=== PATIENT | female | born 1955 | race Hispanic/Latino ===

== ENCOUNTER 2017-09-02 01:43 | Emergency (ER) | payer OTHER ==
[2017-09-02] MEDS ORDERED: HYDROcodone/Acetaminophen 7.5/325 mg Tablet ONE (02:23)
[2017-09-02 02:38] LABS: #Basophils 0.1 thou/uL (0.0-0.2); #Eosinphils 0.2 thou/uL (0.0-0.7); #Lymphocytes 2.7 thou/uL (1.20-3.40); #Monocytes 0.4 thou/uL (0.11-0.59); #Neutrophils 2.8 thou/uL (1.40-6.50); %Eosinophils 2.7 % (0.0-10.0); %Lymphocytes 43.9 % (21.0-51.0); %Monocytes 6.7 % (0.0-10.0); ALT (SGPT) 16 U/L (8-55); AST (SGOT) 13 U/L (5-34); Alkaline Phosphatase 152 U/L (40-150); Anion Gap 18 mmol/L (10-20); BUN (Urea Nitrogen) 18 mg/dL (9.8-20.1); Bilirubin, Total 0.2 mg/dL (0.2-1.2); CK (CPK) 51 U/L (29-168); Calc. Creatinine Clearance 0 mL/min (70-130); Calcium 9.4 mg/dL (7.8-10.44); Carbon Dioxide 22 mmol/L (22-29); Chloride 95 mmol/L (98-107); Estimated GFR-MDRD 53; Globulin 3.4 g/dL (2.4-3.5); Hematocrit 42.8 % (36.0-47.0); Mean Platelet Volume 9.9 fL (7.4-10.4); Microcytosis SLIGHT = 6-15 cells (100X) (0-5/hpf); Protein, Total 7.4 g/dL (6.0-8.3); Red Blood Cell (RBC) Count 5.54 mill/uL (4.20-5.40); White Blood Cell (WBC) Count 6.2 thou/uL (4.8-10.8)
[2017-09-02] MEDS ORDERED: Insulin Regular 300 UNITS/3 ML VIAL ONE (02:42)
== END 2017-09-02 03:58 | disposition home or self-care (01) ==
LOC: SCSER 01:43
DX: M25.571 Pain in right ankle and joints of right foot (principal); E11.65 Type 2 diabetes mellitus with hyperglycemia; M32.9 Systemic lupus erythematosus, unspecified; E11.9 Type 2 diabetes mellitus without complications; I25.10 Atherosclerotic heart disease of native coronary artery without angina pectoris; E78.5 Hyperlipidemia, unspecified; I10 Essential (primary) hypertension; E66.9 Obesity, unspecified; F41.9 Anxiety disorder, unspecified; F31.9 Bipolar disorder, unspecified; Z79.84 Long term (current) use of oral hypoglycemic drugs; Z79.82 Long term (current) use of aspirin; Z79.899 Other long term (current) drug therapy
CPT/HCPCS: 36416; 80053; 82550; 85025; 85379; 96361; 96374; J1815

== ENCOUNTER 2018-09-09 10:50 | Outpatient (CLI) | payer OTHER, MEDICARE ==
--- NOTE | 2018-09-09 12:17 | RAD ---
PELVIS 1 VIEW: Date: 09/09/18 HISTORY: Fall. Right hip pain. COMPARISON: None. FINDINGS: SI joints are normal, as well as the pubic symphysis. The femoral necks are intact. No acute fracture or malalignment. IMPRESSION: No acute fracture or malalignment. POS: OFF
--- NOTE | 2018-09-09 12:18 | RAD ---
RIGHT HIP 2 VIEWS: Date: 09/09/18 HISTORY: Fall. Pain. COMPARISON: None. FINDINGS: Right obturator ring is intact. No acute fracture or malalignment. IMPRESSION: No acute fracture or malalignment. POS: OFF
--- NOTE | 2018-09-09 13:29 | RAD ---
LEFT HIP TWO VIEWS: History: Pain. Fall. Comparison: None. FINDINGS: Left femoral neck is in place. Obturator ring is intact. Old adductor injury on the left. Mild narrowing left SI joint. IMPRESSION: No acute fracture. Mild degenerative changes. POS: OFF
== END 2018-09-09 10:51 | disposition home or self-care (01) ==
LOC: BICRAD 10:50
PROVIDERS: ATTEND Internal Medicine Rheumatology
DX: M25.551 Pain in right hip (principal); M16.12 Unilateral primary osteoarthritis, left hip
CPT/HCPCS: 72170

== ENCOUNTER 2018-09-16 13:56 | Outpatient (CLI) | payer OTHER, MEDICARE | END 2018-09-16 13:57 | disposition home or self-care (01) | LOC: BICMAMMO 13:56 | PROVIDERS: ATTEND Obstetrics & Gynecology | DX: Z12.31 Encounter for screening mammogram for malignant neoplasm of breast (principal); Z80.3 Family history of malignant neoplasm of breast | CPT/HCPCS: 77063; 77067 ==

== ENCOUNTER 2018-10-22 13:20 | Outpatient (CLI) | payer OTHER, MEDICARE ==
--- NOTE | 2018-10-22 14:57 | ULT ---
SOFT TISSUE ULTRASOUND OF THE RIGHT HIP AND OF THE RIGHT LOWER EXTREMITY: INDICATIONS: Palpable abnormality, mass. FINDINGS: Localized sonographic imaging of the site of palpable concern of the right lower extremity/junction w ith right hemipelvis, adjacent the right hip, does not reveal a discrete lesion. There is echogenici ty, indicative of subcutaneous fat. IMPRESSION: Subcutaneous fat echogenicity is seen at the site of concern. The possibility of an indwelling lipom a is not excluded. Recommend followup with MRI with and without contrast to further evaluate. POS: [facility]
== END 2018-10-22 13:21 | disposition home or self-care (01) ==
LOC: SCSULT 13:20
PROVIDERS: ATTEND Nurse Practitioner Adult Health
DX: R59.0 Localized enlarged lymph nodes (principal)
CPT/HCPCS: 76705

== ENCOUNTER 2018-11-11 10:02 | Outpatient (CLI) | payer OTHER, MEDICARE ==
[2018-11-11 11:18] LABS: Estimated GFR-MDRD - POC Greater than 90
--- NOTE | 2018-11-11 13:40 | MRI ---
MRI RIGHT HIP WITH AND WITHOUT CONTRAST: HISTORY: R59.0, lymphadenopathy. COMPARISON: Ultrasound from 10/22/2018. FINDINGS: BONES: No fracture. No malalignment. No stress edema. On the T1 weighted imaging sequence, there are no abnormal areas of bone marrow signal replacement. There is chondral loss of the femoral head and acetabular articular surfaces with some reactive marrow edema. SOFT TISSUES: There is no soft tissue mass. The intrapelvic soft tissues are unremarkable. TENDONS: Low grade tendinosis of the gluteus medius tendon. Low grade greater trochanteric bursitis . The iliopsoas tendon is intact. Mild tendinosis of the common hamstring tendon and the semimembra nosus. IMPRESSION: 1. No soft tissue mass of the thigh. 2. Mild to moderate degenerative changes of the right hip with advanced cartilage loss of the latera l femoral head and acetabulum, as well as subcortical reactive marrow changes. 3. Mild gluteus medius tendinosis and greater trochanteric bursitis. 4. No acute fracture, malalignment, or stress edema. 5. No adenopathy. POS: [facility]
== END 2018-11-11 10:03 | disposition home or self-care (01) ==
LOC: SCSMRI 10:02
PROVIDERS: ATTEND Nurse Practitioner Adult Health
DX: R59.0 Localized enlarged lymph nodes (principal); M16.11 Unilateral primary osteoarthritis, right hip; M76.01 Gluteal tendinitis, right hip; M70.61 Trochanteric bursitis, right hip
CPT/HCPCS: 82565

== ENCOUNTER 2019-01-20 07:55 | Outpatient (CLI) | payer OTHER, MEDICARE ==
--- NOTE | 2019-01-20 10:21 | MRI ---
MRI OF CERVICAL SPINE WITHOUT CONTRAST: DATE: 01/20/2019. COMPARISON: None. HISTORY: Chronic neck pain radiating down the left shoulder and arm, cervical radiculopathy. TECHNIQUE: Multiplanar, multisequence MR imaging of the cervical spine provided without contrast media. FINDINGS: The sagittal STIR imaging is limited on the basis of motion artifact and demonstrates no focal area o f osseous marrow edema. Incompletely assessed mucosal thickening of the sphenoid sinuses noted. There is mild degenerative change present at the atlantoaxial interspace. C2-3: Mild disk space narrowing. Detailed assessment limited on the basis of motion. Mild bilatera l facet hypertrophy, left greater than right. No significant central canal or neural foraminal steno sis. C3-4: No significant central canal stenosis. Detailed assessment limited on the basis of motion art ifact. Mild bilateral facet hypertrophy, left greater than right. No significant neural foraminal s tenosis on either side. C4-5: Mild disk bulge with partial effacement of ventral thecal sac. No significant central canal s tenosis. No significant neural foraminal stenosis. Mild bilateral facet hypertrophy. C5-6: Mild disk space narrowing and mild disk bulge with partial effacement of the ventral thecal sa c. No significant central canal stenosis. No significant neural foraminal stenosis on either side. C6-7: Mild disk space narrowing and mild disk bulge. Partial effacement of ventral thecal sac with no significant central canal or neural foraminal stenosis. C7-T1: No central canal or neural foraminal stenosis. There is no focal area of abnormal signal intensity identified within the cervical cord. IMPRESSION: Motion limited examination demonstrating multilevel mild degenerative change. There is no evidence f or high-grade/severe central canal or neural foraminal stenosis within the cervical spine. POS: [facility]
== END 2019-01-20 07:56 | disposition home or self-care (01) ==
LOC: SCSMRI 07:55
PROVIDERS: ATTEND Anesthesiology Pain Medicine
DX: M47.22 Other spondylosis with radiculopathy, cervical region (principal)
CPT/HCPCS: 72141

== ENCOUNTER 2019-04-05 07:24 | Outpatient (CLI) | payer OTHER, MEDICARE ==
--- NOTE | 2019-04-05 08:54 | RAD ---
LEFT SHOULDER 3 VIEWS: HISTORY: Chronic left shoulder pain FINDINGS: There are degenerative changes in the acromioclavicular joint. No acute fracture, dislocation or bony destruction is identified
--- NOTE | 2019-04-05 11:03 | MRI ---
EXAM: LEFT SHOULDER MRI WITHOUT IV CONTRAST: History: Chronic left shoulder pain. Technique: Multiplanar, multisequence MRI examination of the left shoulder is performed. FINDINGS: AC joint arthrosis changes are noted with subchondral cystic changes with some downsloping of the ant erior and lateral acromion with minimal fat stranding in the subacromial bursa. There is abnormal sig nal involving the intraarticular portion of the biceps tendon and biceps anchor and superior labrum, evidence for biceps tendon interstitial tear and tear of the biceps anchor and involving the superior labrum as well. Minimal supraspinatus tendinopathy. The infraspinatus tendon appears intact. Subscap ularis tendonopathy as well as undersurface partial thickness interstitial tear. Rotator cuff muscles appear to be within normal limits of signal and volume. No acute osteochondral defect. No significan t abnormal marrow signal. IMPRESSION: Abnormal signal associated with the intraarticular portion of the biceps tendon, biceps anchor and denson perior labrum, evidence for tears. Undersurface and interstitial tear of the subscapularis tendon. AC joint arthrosis with downsloping of the anterior and lateral acromion. Other findings as above. POS: [facility]
== END 2019-04-05 07:25 | disposition home or self-care (01) ==
LOC: SCSMRI 07:24
PROVIDERS: ATTEND Internal Medicine Rheumatology
DX: M25.512 Pain in left shoulder (principal); G89.29 Other chronic pain; S46.212A Strain of muscle, fascia and tendon of other parts of biceps, left arm, initial encounter; S46.912A Strain of unspecified muscle, fascia and tendon at shoulder and upper arm level, left arm, initial encounter; M19.012 Primary osteoarthritis, left shoulder; M75.92 Shoulder lesion, unspecified, left shoulder

== ENCOUNTER 2020-09-17 12:47 | Outpatient (CLI) | payer OTHER, MEDICARE ==
--- NOTE | 2020-09-17 13:25 | MMO ---
Bilateral MAMMO Bilat Screen [facility]. CLINICAL HISTORY: Patient is 64 years old and is seen for screening. The patient has no family history of breast cancer. The patient has no personal history of cancer. VIEWS: The views performed were: bilateral craniocaudal with tomosynthesis and bilateral mediolateral oblique with tomosynthesis. FILMS COMPARED: The present examination has been compared to prior imaging studies performed at [facility] on 08/26/2017 and 09/16/2018, and at [facility] on 05/01/2014 and 06/25/2015. This study has been interpreted with the assistance of computer-aided detection. MAMMOGRAM FINDINGS: There are scattered fibroglandular densities. There are no suspicious masses, suspicious calcifications, or new areas of architectural distortion. IMPRESSION: THERE IS NO MAMMOGRAPHIC EVIDENCE OF MALIGNANCY. A ROUTINE FOLLOW-UP MAMMOGRAM IN 1 YEAR IS RECOMMENDED. THE RESULTS OF THIS EXAM WERE SENT TO THE PATIENT. ACR BI-RADS Category 1 - Negative MAMMOGRAPHY NOTE: 1. A negative mammogram report should not delay a biopsy if a dominant of clinically suspicious mass is present. 2. Approximately 10% to 15% of breast cancers are not detected by mammography. 3. Adenosis and dense breasts may obscure an underlying neoplasm. Reported by: ROSAURA REBOLLEDO MD Electonically Signed: [id number]
== END 2020-09-17 12:48 | disposition home or self-care (01) ==
LOC: BICMAMMO 12:47
PROVIDERS: ATTEND Obstetrics & Gynecology
DX: Z12.31 Encounter for screening mammogram for malignant neoplasm of breast (principal)
CPT/HCPCS: 77063; 77067

== ENCOUNTER 2020-09-22 18:47 | Observation (INO) | payer OTHER, MEDICARE ==
[~2020-09-22 18:47] MED LIST: Iopamidol-370 76% 500 ML 1 ML ONE
[2020-09-22 20:33] LABS: #Basophils 0.1 thou/uL (0.0-0.2); #Eosinphils 0.2 thou/uL (0.0-0.7); #Lymphocytes 2.9 thou/uL (1.20-3.40); #Monocytes 0.6 thou/uL (0.11-0.59); #Neutrophils 4.4 thou/uL (1.40-6.50); %Basophils 1.1 % (0.0-1.0); %Eosinophils 2.5 % (0.0-10.0); %Lymphocytes 35.3 % (21.0-51.0); %Monocytes 7.5 % (0.0-10.0); %Neutrophils 53.6 % (42.0-75.0); Hemoglobin 11.6 g/dL (12.0-16.0); Mean Corpuscular HGB CONC 33.1 g/dL (32.0-36.0); Mean Corpuscular Hemoglobin 25.7 pg (27.0-31.0); Mean Corpuscular Volume 77.8 fL (78.0-98.0); Mean Platelet Volume 8.2 fL (7.4-10.4); Platelet Count 242 thou/uL (130-400); RBC Distribution Width 13.9 % (11.5-14.5); Red Blood Cell (RBC) Count 4.52 mill/uL (4.20-5.40); White Blood Cell (WBC) Count 8.3 thou/uL (4.8-10.8)
[2020-09-22 20:39] LABS: PTT 31.2 sec (22.9-36.1); Prothrombin Time 13.1 sec (12.0-14.7)
[2020-09-22 20:54] LABS: ALT (SGPT) 15 U/L (8-55); AST (SGOT) 11 U/L (5-34); Albumin 3.8 g/dL (3.4-4.8); Alkaline Phosphatase 116 U/L (40-110); Anion Gap 14 mmol/L (10-20); BUN (Urea Nitrogen) 20 mg/dL (9.8-20.1); Bilirubin, Total 0.3 mg/dL (0.2-1.2); Calc. Creatinine Clearance 0 mL/min (70-130); Calcium 9.3 mg/dL (7.8-10.44); Carbon Dioxide 24 mmol/L (23-31); Chloride 103 mmol/L (98-107); Estimated GFR-MDRD 65; Globulin 3.1 g/dL (2.4-3.5); Glucose 227 mg/dL (80-115); Potassium 3.6 mmol/L (3.5-5.1); Protein, Total 6.9 g/dL (6.0-8.3); Sodium 137 mmol/L (136-145)
--- NOTE | 2020-09-22 21:29 | CT ---
CT BRAIN WITHOUT CONTRAST CTA HEAD WITH AND WITHOUT IV CONTRAST CTA NECK WITH AND WITHOUT IV CONTRAST 09/22/20 HISTORY: Acute onset left lower extremity numbness. FINDINGS: No evidence of acute infarct, hemorrhage, midline shift or abnormal extra-axial fluid collections see n. The ventricular size is appropriate and the basilar cisterns patent. There is a calcified hemangi francoise in the left anterior frontal region. The bony calvarium is intact. There is mucosal disease in th e paranasal sinuses. There is calcified plaque in the vertebrobasilar and carotid artery systems. There is good flow in t he cisterns without evidence of high grade stenosis, major branch occlusion or aneurysm formation. There are degenerative changes in the cervical spine. There are small low dense lesions in the thyroi d gland. IMPRESSION: No CT evidence of acute intracranial process. POS: OFF
--- NOTE | 2020-09-22 22:07 | PDOC.FPRHP ---
- History of Present Illness Chief Complaint: LLE numbness History of Present Illness: Patient is a 64-year-old female with a history of diabetes, coronary artery disease status post stenting, hyperlipidemia, hypertension presents the ED for evaluation of acute onset left lower extremity numbness [facility] Patient describes an absence of sensation in her left lower extremity from then knee down that has been improving since onset around 1330. Patient states that she does have a history of lumbar radiculopathy with paresthesias in her right lower extremity but says that her numbness feels different than typical it is on the contralateral side. Denies any headache in association. Denies any weakness, confusion, dysarthria, vision changes, light- headeded. ED Course: given 325 aspirin - Allergies/Adverse Reactions Allergies Allergy/AdvReac Type Severity Reaction Status Date / Time acetaminophen Allergy Intermediate Anxiety Verified 09/23/20 00:05 [From Tylenol-Codeine #3] codeine Allergy Intermediate Anxiety Verified 09/23/20 00:05 [From Tylenol-Codeine #3] diphenhydramine Allergy Intermediate "makes me Verified 09/23/20 00:07 anxious" doxycycline Allergy Intermediate "real bad Verified 09/23/20 00:07 acid reflux" lisinopril Allergy Intermediate "severe Verified 09/23/20 00:05 cough" metoclopramide HCl Allergy Intermediate "makes me Verified 09/23/20 00:05 [From Reglan] crazy" prochlorperazine Allergy Intermediate "severe Verified 09/23/20 00:07 [From Compazine] anxiety" prochlorperazine edisylate Allergy Intermediate "severe Verified 09/23/20 00:07 [From Compazine] anxiety" prochlorperazine maleate Allergy Intermediate "severe Verified 09/23/20 00:07 [From Compazine] anxiety" promethazine HCl Allergy Intermediate "overly Verified 09/23/20 00:07 [From Phenergan] anxious" - Home Medications Medication Instructions Recorded Confirmed Type metFORMIN HCl 1,000 mg PO BID- 11/13/13 09/23/20 History Cholecalciferol (Vitamin D3) 5,000 unit PO DAILY 11/26/15 09/22/20 History [Vitamin D3] Cinnamon Bark/Chromium Picolin 1 cap PO DAILY 11/26/15 09/23/20 History [Cinnamon Plus Chromium Capsule] Clopidogrel Bisulfate [Clopidogrel] 75 mg PO DAILY 11/26/15 09/23/20 History Escitalopram Oxalate [Lexapro] 40 mg PO DAILY 11/26/15 09/22/20 History Hydroxychloroquine Sulfate 200 mg PO BID 11/26/15 09/22/20 History [Plaquenil] Pantoprazole [Protonix] 80 mg PO DAILY 11/26/15 09/23/20 History Aspirin [Ecotrin Low Strength] 81 mg PO DAILY 07/12/20 09/23/20 History Calcium Carb/Vitamin D3/Vit K1 1 tablet PO DAILY 07/13/20 09/23/20 History [Calcium + D Soft Chewable Tablet] Carvedilol [Coreg] 3.125 mg PO DAILY #60 tablet 07/14/20 Rx Isosorbide Mononitrate [Isosorbide 30 mg PO DAILY #30 tab.er.24h 07/14/20 09/23/20 Rx Mononitrate ER] Nitroglycerin [Nitrostat] 0.4 mg SL Q5MIN PRN #30 tab 07/14/20 09/23/20 Rx Ranolazine [Ranexa] 500 mg PO BID #60 tab 07/14/20 09/23/20 Rx Simvastatin 40 mg PO HS #30 tablet 07/14/20 09/23/20 Rx Insulin Degludec [Tresiba 52 units SQ BID 09/22/20 09/22/20 History Flextouch U-200] Atorvastatin Calcium 1 tab PO HS 09/23/20 09/23/20 History - History PMHx: HTN, HLD, DM2, CAD w/hx of stents PSHx: Bilateral cateract, right lasik eye surgery, right shoulder LN removed, hysterectomy, cardiac stents FHx: DM Social: no smoking, alcohol or drugs - Review of Systems General: denies: fever/chills, weight/appetite/sleep changes Eyes: denies: eye pain, vision changes ENT: denies: nasal congestion, rhinorrhea Respiratory: denies: cough, congestion, shortness of breath Cardiovascular: reports: other (Reports acid reflux 2 days in the past 2 weeks, resolved with tums) Gastrointestinal: denies: nausea, vomiting, diarrhea, constipation, abdominal pain Genitourinary: denies: incontinence, dysuria Skin: denies: rashes, lesions Musculoskeletal: denies: pain, tenderness Neurological: reports: numbness. denies: syncope, seizure, weakness Psychological: reports: anxiety (Patient reports she is severely depressed.), depression - Vital signs BP: 144/55, Pulse: 74, Resp: 19, Pain: 5, O2 sat: 98 on (Room Air), Wt: 68kg - Physical Exam Constitutional: NAD, awake, alert and oriented, well developed HEENT: normocephalic and atraumatic, PERRLA, EOMI, grossly normal vision, MMM Neck: supple, FROM, trachea midline Chest: no-tender to palpation Heart: RRR, no murmurs/rubs/gallops, pulses present, no edema Lungs: CTAB, no respiratory distress, good air movement Abdomen: soft, non-tender, bowel sounds present Musculoskeletal: normal structure, ROM grossly normal Neurological: no focal deficit, CN II-XII intact, DTRs 2+, other (decreased sensation LLE below the knee compared to the RLE, intact at and above the knee) Skin: no rash/lesions, good turgor, capillary refill <2 seconds Heme/Lymphatic: no unusual bruising or bleeding, no purpura Psychiatric: normal mood and affect, good judgment and insight, intact recent and remote memory FMR H&P: Results - Labs Result Diagrams: 09/22/20 20:25 09/22/20 20:25 Lab results: WBC 8.3 thou/uL (4.8-10.8) 09/22/20 20:25 Hgb 11.6 g/dL (12.0-16.0) L 09/22/20 20:25 Hct 35.1 % (36.0-47.0) L 09/22/20 20:25 MCV 77.8 fL (78.0-98.0) L 09/22/20 20:25 Plt Count 242 thou/uL (130-400) 09/22/20 20: Neutrophils % 53.6 % (42.0-75.0) 09/22/20 20:25 Sodium 137 mmol/L (136-145) 09/22/20 20:25 Potassium 3.6 mmol/L (3.5-5.1) 09/22/20 20:25 Chloride 103 mmol/L (98-107) 09/22/20 20:25 Carbon Dioxide 24 mmol/L (23-31) 09/22/20 20:25 BUN 20 mg/dL (9.8-20.1) 09/22/20 20:25 Creatinine 0.88 mg/dL (0.6-1.1) 09/22/20 20:25 Glucose 227 mg/dL (80-115) H 09/22/20 20:25 Calcium 9.3 mg/dL (7.8-10.44) 09/22/20 20:25 Total Bilirubin 0.3 mg/dL (0.2-1.2) 09/22/20 20:25 AST 11 U/L (5-34) 09/22/20 20:25 ALT 15 U/L (8-55) 09/22/20 20:25 Alkaline Phosphatase 116 U/L (40-110) H 09/22/20 20:25 Serum Total Protein 6.9 g/dL (6.0-8.3) 09/22/20 20:25 Albumin 3.8 g/dL (3.4-4.8) 09/22/20 20:25 - EKG Interpretation EKG: normal sinus rhythm with a rate of 73, LA 122, cures duration of 70, QTC of 398, cures active 18 with flattened T waves in the anterior septal leads, ST segments normal axis is normal conduction is normal. Nonspecific EKG - Radiology Interpretation CT scan - head Status: report reviewed by me (No acute findings) FMR H&P: A/P - Plan LLE Numbness 2/2 CVA vs. Lumbar radiculopathy Several RFs for stroke CT Brain negative Hx Lumbar radiculopathy with parasthesias/numbness to RLE - admit stroke unit, monitor on tele - MRI Brain r/o stroke - permissive HTN - consider imaging lumbar spine if MRI neg HTN - continue home medications HLD - continue home medications, will likely increase statin to high-intensity DM2 - continue home medications - moderate SS - Hypoglycemia protocol CAD w/hx of stents - continue home medications Hx Depression/Anxiety and Bipolar Disorder - continue home medications - reportedly resuming counseling on monday 09/24 Dispo: admit stroke unit on tele PCP: Gladis Code Status: Full FMR H&P: Upper Level - Plan Date/Time: 09/22/202206 IZain DO, have evaluated this patient and agree with findings/plan as outlined by epidemiology intern resident. Pertinent changes/additions are listed here. This is a 64 yo female with a pmh of HTN, HLD, DM2, CAD w/hx of stents who presents to the ER with a cc of abrupt loss of sensation in her left lower extremity below the knee. She states this occurred at 1330 today and has had some improvement since then. She describes her condition as numbness on her entire left lower extremity initially with some resolution above her knee at this point. She states it is a feeling as if she sat on he leg for too long. She reports a history of lumbago with radiculopathy on the right but never any left sided issues. She denies any cauda equina symptoms, dizziness, lightheadedness, or chest pain. She does report a headache which is difficult to tell if this is new or chronic based on her description. She states she had a normal MRI of her brain about a month ago under the care of Dr. Eagle. She also reports that a recent MRI of her lumbar spine shows bone spurs that may be impinging on nerve roots and she plans on having surgery in October by Dr. Garcia. Her vital signs were grossly normal in the ER, mild HTN. Pt appeared in NAD, head was AT/NC, Cardio/pulm RRR/CTAB, Neuro CNII-XII grossly intact, strength 5/5 globally, moderately decreased sensation on the left lower extremity below the knee and mild decreased sensation above the knee and on the plantar surface of her foot. I was unable to elicit DTR on bilateral lower extremities. A/P Pt certainly has multiple risk factors for a CVA. Lumbar pathology would also be a consideration for this pt. Plan to admit to stroke, monitor on tele, obtain risk stratifying labs, permissive HTN, and obtain an MRI of brain in the morning. If this work up is negative, I would consider CT/MRI of lumbar region. Please see epidemiology intern note for management of chronic diseases and further information. Code: Full Prophylaxis: SCDs Family: None at bedside Diet: HH, CC Fluids: SL Disposition: DC in 1-2 days PCP: Dr. Griffith Addendum - Attending - Attending Attestation Date/Time: 09/23/20 1306 ISee attending note on 09/23/2020.
[2020-09-22 23:42] VITALS: BMI 29.2
[2020-09-23] MEDS ORDERED: Dextrose 5% in Water 1,000 ML IV PRN (00:06)
[2020-09-23] MEDS ORDERED: HumaLOG 300 UNITS/3 ML VIAL SC PRN ×3 (00:06→00:36)
[2020-09-23] MEDS ORDERED: Dextrose 50% Abboject 50 ML SYRINGE SLOW IVP PRN (00:06)
[2020-09-23] MEDS ORDERED: Nitroglycerin 0.4 MG TAB (25 Tab Bottle) SL PRN (00:31)
[2020-09-23 07:08] LABS: Hemoglobin A1c 9.5 % (4.0-6.0)
[2020-09-23 07:20] LABS: Cardiac Risk 2.5 (Less than 4.5); Cholesterol 119 mg/dl (< 200 Desired); HDL Cholesterol 48 mg/dL (>60 Neg Risk); LDL Cholesterol, Calculated 39 mg/dL; Magnesium 1.5 mg/dL (1.6-2.6); Phosphorus 3.7 mg/dL (2.3-4.7); Triglycerides 158 mg/dL (Less than 150)
[2020-09-23] MEDS ORDERED: metFORMIN 500 MG TAB PO SCH (08:00)
--- NOTE | 2020-09-23 08:36 | PDOC.FM ---
- Subjective Subjective: Patient reports that she is doing well this morning, resting comfortably in bed. Denies chest pain, SOB, headache, abdominal pain. Reports that her left leg continues to feel numb. - Objective MAR Reviewed: Yes Vital Signs & Weight: Vital Signs (12 hours) Temp Pulse Resp BP Pulse Ox 09/23/20 07:43 98.9 F 82 16 118/58 L 98 09/23/20 04:00 97.7 F 85 16 131/60 98 09/22/20 22:07 97.6 F 69 16 130/59 L 98 Weight Weight 72.575 kg I&O: 09/22/20 09/23/20 09/24/20 06:59 06:59 06:59 Intake Total 120 Balance 120 Result Diagrams: 09/22/20 20:25 09/22/20 20:25 Phys Exam - Physical Examination Constitutional: NAD HEENT: moist MMs Neck: supple, full ROM Respiratory: no wheezing, no rales, no rhonchi, clear to auscultation bilateral Cardiovascular: RRR, no significant murmur, no rub Gastrointestinal: soft, non-tender, no distention, positive bowel sounds Musculoskeletal: no edema No noticable neurologic deficits; sensation to light touch intact bilateral and reportedly same on both sides but "numb" Psychiatric: normal affect Skin: no rash Dx/Plan - Plan Plan: LLE Numbness 2/2 CVA vs. Lumbar radiculopathy Several RFs for stroke CT Brain negative Hx Lumbar radiculopathy with parasthesias/numbness to RLE - admit stroke unit, monitor on tele - MRI ordered for today - permissive HTN - will order fasting lipid panel, TSH, A1C, Mag, and Phos - consider imaging lumbar spine if MRI neg HTN - holding carvedilol for above HLD - continue home medications, will likely increase statin to high-intensity pending fasting lipid panel DM2 - continue home medications, will obtain A1C - moderate SS - Hypoglycemia protocol CAD w/hx of stents - continue home medications Hx Depression/Anxiety and Bipolar Disorder - continue home medications - reportedly resuming counseling on monday 09/24 PCP: Gladis Diet: Code Status: Full Dispo: pending results of MRI Addendum - Attending - Attending Attestation Date/Time: 09/23/20 1306 I personally evaluated the patient and discussed the management with Dr. Ansari I agree with the History, Examination, Assessment and Plan documented above with any addition or exceptions noted below - 64-year-old female with a history of diabetes, coronary artery disease status post stenting, hyperlipidemia, hypertension presents the ED for evaluation of acute onset left lower extremity numbness that occurred while shopping at [employer]. Patient describes an absence of sensation in her left lower extremity from then knee down that has been improving since onset around 1330. Patient states that she does have a history of lumbar radiculopathy with paresthesias in her right lower extremity but says that her numbness feels different than typical it is on the contralateral side. Denies any headache in association. Denies any weakness, confusion, dysarthria, vision changes, light-headeded. PMH/PSH/Meds/AH reviewed and agree with resident's documentation. Afebrile VSS. Exam repeated by me and agree with resident's findings. Labs: H/H= 11.6/35.1, BUN/Cr=20/0.88, CTA brain negative. A/P: 1) Left LE paresthesia - suspect nerve compression from lumbar spine most likely. MRI brain pending. If negative for CVA, will d/c home with outpatient workup. 2) DM- started on SGLT1 for CV risk. 3) HTN- well controlled.
[2020-09-23] MEDS ORDERED: Magnesium 2 GM/50 ML 2 GM in Premix Bag 1 BAG IVPB SCH (08:45)
[2020-09-23] MEDS ORDERED: CINNAMON BARK PO SCH (09:00)
[2020-09-23] MEDS ORDERED: Clopidogrel Bisulfate 75 MG TAB PO SCH (09:00)
[2020-09-23] MEDS ORDERED: Escitalopram Oxalate 20 mg Tablet PO SCH (09:00)
[2020-09-23] MEDS ORDERED: Empagliflozin 10 MG TAB PO SCH (09:00)
[2020-09-23] MEDS ORDERED: Aspirin 81 mg Enteric Coated Tablet PO SCH (09:00)
[2020-09-23] MEDS ORDERED: CHROMIUM PICOLIN PO SCH (09:00)
[2020-09-23] MEDS ORDERED: Calcium Carbonate 600 MG + Vit D TAB PO SCH (09:00)
[2020-09-23] MEDS ORDERED: [UNRECOGNIZED DRUG - OTHER] PO SCH (09:00)
[2020-09-23] MEDS ORDERED: Hydroxychloroquine Sulfate 200 MG TAB PO SCH (09:00)
[2020-09-23] MEDS ORDERED: Cholecalciferol 1,000 UNITS (25 MCG) TAB PO SCH (09:00)
[2020-09-23] MEDS ORDERED: Magnevist 469MG/ML 20 ML VIAL ONE (09:57)
--- NOTE | 2020-09-23 12:53 | MRI ---
MRI brain with and without contrast: DATE: 09/23/2020 HISTORY: 64-year-old female with acute onset left lower extremity numbness. Rule out CVA. TECHNIQUE: Multiplanar, multisequence MRI of the brain obtained pre and post IV injection of gadolinium based co ntrast agent. FINDINGS: There is no obstructive hydrocephalus. There is no midline shift or any other evidence of mass effect . There is no extra-axial fluid collection. There are mild chronic ischemic white matter changes due to microvascular atherosclerosis. There is otherwise no major intra-axial signal abnormality, abn ormal enhancement, mass, recent hemorrhage, or restricted diffusion (no acute infarction). There is an approximately 1.3 x 1 x 1.3 cm dural based heterogeneously enhancing very T2 hypointense extra-axi al mass at the left paramedian frontal convexity, adjacent to the coronal suture. It does not cause adjacent vasogenic edema. There is total opacification of left sphenoid air cell, partial opacification of right sphenoid air c ell, and mild mucosal thickening of bilateral maxillary and ethmoid sinuses. IMPRESSION: 1) mild chronic ischemic white matter changes. 2) no other brain abnormality 3.) small calcified left frontal meningioma.
[2020-09-23 15:38] VITALS: BP 120/59; TEMP 98.2
[2020-09-23] MEDS ORDERED: Atorvastatin Calcium 10 MG TAB PO SCH (21:00)
[2020-09-23] MEDS ORDERED: Non-Formulary Item 1 EACH (Atorvastatin Calcium [Atorvastatin Calcium] 80 MG Tablet) PO SCH (21:00)
== END 2020-09-23 15:17 | disposition home or self-care (01) ==
LOC: ERS 18:47 → 2SE 21:57
PROVIDERS: ADMIT Family Medicine; ATTEND Family Medicine
DX: R20.0 Anesthesia of skin (principal); E11.9 Type 2 diabetes mellitus without complications; E78.5 Hyperlipidemia, unspecified; I10 Essential (primary) hypertension; I25.10 Atherosclerotic heart disease of native coronary artery without angina pectoris; Z79.02 Long term (current) use of antithrombotics/antiplatelets; Z79.82 Long term (current) use of aspirin; Z79.4 Long term (current) use of insulin; Z79.899 Other long term (current) drug therapy; Z88.1 Allergy status to other antibiotic agents; Z88.5 Allergy status to narcotic agent; Z88.6 Allergy status to analgesic agent; Z88.8 Allergy status to other drugs, medicaments and biological substances; Z95.5 Presence of coronary angioplasty implant and graft; F31.9 Bipolar disorder, unspecified
CPT/HCPCS: 36415; 36416; 70496; 70498; 70553; 80053; 80061; 83036; 83735; 84100; 84443; 84484; 85025; 85610; 85730; 93005; 96365; A9579; G0378; J3475; Q9967

== ENCOUNTER 2020-10-23 06:21 | Outpatient (CLI) | payer OTHER ==
[2020-10-23 09:25] LABS: Hemoglobin 11.3 g/dL (12.0-16.0); Mean Corpuscular Hemoglobin 24.2 PG (27.0-33.0); Mean Corpuscular Volume 78.2 fl (80.0-100.0); Mean Platelet Volume 10.1 fl (7.4-10.4); Platelet Count 265 10x3/uL (130-400); RBC Distribution Width 15.8 % (11.5-14.5); Red Blood Cell (RBC) Count 4.67 10x6/uL (3.90-5.20); White Blood Cell (WBC) Count 6.8 10x3/uL (4.5-11.0)
[2020-10-23 09:38] LABS: Anion Gap 13 mmol/L (10-20); BUN (Urea Nitrogen) 26 mg/dL (9.8-20.1); Calc. Creatinine Clearance 0 mL/min (70-130); Calcium 9.2 mg/dL (7.8-10.44); Carbon Dioxide 27 mmol/L (23-31); Chloride 105 mmol/L (98-107); Glucose 246 mg/dL (80-115); Potassium 4.4 mmol/L (3.5-5.1); Sodium 141 mmol/L (136-145)
[2020-10-23 16:26] LABS: SARS-CoV-2 MS2 Positive; SARS-CoV-2 N Gene Negative; SARS-CoV-2 S Gene Negative; SARS-CoV-2 by NAA Not Detected (NotDetected); SARS-CoV-2 orf1ab Negative
== END 2020-10-23 06:22 | disposition home or self-care (01) ==
LOC: LABBT 06:21
PROVIDERS: ATTEND Neurological Surgery
DX: Z01.818 Encounter for other preprocedural examination (principal); M54.16 Radiculopathy, lumbar region; Z20.828 Contact with and (suspected) exposure to other viral communicable diseases
CPT/HCPCS: 80048; 85027; 87635; 93005; 93010; U0003

== ENCOUNTER 2020-10-26 07:36 | Inpatient (IN) | payer OTHER, MEDICARE ==
[2020-10-25 10:54] VITALS: BMI 29.2
--- NOTE | 2020-10-25 13:03 | HP ---
ADDITIONAL REFERRING PHYSICIAN: Dr. Patel. HISTORY OF PRESENT ILLNESS: Ms. Herzog is a 65-year-old woman, referred to us by Dr. Gale and Dr. Patel for evaluation of lower back pain and right lower extremity L5 radiculopathy. She states this has been ongoing for the last 3 years, but recently, it has been gradually intensifying. She has been receiving epidural steroid injections from Dr. Gale with improvement in her symptoms; however, they continue to recur. She hopes to investigate surgical options. MRI on disk reveals lateral recess stenosis on the right at L4-L5 as well as foraminal stenosis at L5, both of these likely contribute to her symptoms. PAST MEDICAL HISTORY: Hypercholesterolemia, anxiety, osteoarthritis, seasonal allergies, coronary arterial disease, headaches, cataracts, diabetes, osteoporosis, gastroesophageal reflux disease, hypertension. PAST SURGICAL HISTORY: Hysterectomy, ulcer ablation, polypectomy, cardiac stents. CURRENT MEDICATIONS: 1. Vitamin D. 2. Aspirin. 3. Plaquenil. 4. Atorvastatin. 5. Plavix. 6. Pantoprazole. 7. Carvedilol. 8. Escitalopram. 9. Metformin. 10. Dicyclomine. 11. Isosorbide mononitrate. 12. Calcium. 13. Ranolazine. 14. Tresiba. ALLERGIES: PHENERGAN, REGLAN, COMPAZINE, LISINOPRIL, DOXYCYCLINE, TYLENOL NO. 3, GABAPENTIN, AND TRAMADOL. ASSESSMENT: Lumbar radiculopathy. PLAN: Dr. Garcia met with the patient, reviewed imaging, advocated for a right L4-L5 decompression with a right L5 foraminotomy. He explained to the patient the risks, benefits, and alternatives to the procedure. The patient expressed understanding and elected to move forward with surgery as discussed. I do believe that the patient is mentally competent and capable of making medical decisions for herself. We will move forward with surgery as planned. Job ID: [id number]
[2020-10-26] MEDS ORDERED: Bupivacaine PF 0.5% 30 ML VIAL ONE (09:37)
[2020-10-26] MEDS ORDERED: Thrombin 5000 UNITS/5 ML VIAL ONE (09:37)
[2020-10-26] MEDS ORDERED: EPINEPHrine 1 MG/ML AMP ONE (09:37)
[2020-10-26] MEDS ORDERED: Rocuronium Bromide 10 MG/ML (10ML VIAL) ONE (09:44)
[2020-10-26] MEDS ORDERED: Dexamethasone 20 MG/5 ML VIAL ONE (09:44)
[2020-10-26] MEDS ORDERED: PROPOFOL 200 MG/20 ML VIAL ONE (09:44)
[2020-10-26] MEDS ORDERED: Lidocaine 1% PF 5 ML VIAL ONE (09:44)
[2020-10-26] MEDS ORDERED: Ondansetron PF 4 MG/2 ML Vial ONE (09:44)
[2020-10-26] MEDS ORDERED: Fentanyl 100 MCG/2 ML VIAL ONE ×3 (10:24→13:59)
[2020-10-26] MEDS ORDERED: SUGAMMADEX SODIUM 200 MG/2 ML VIAL ONE (11:37)
[2020-10-26] MEDS ORDERED: hydrALAZINE 20 MG/ML VIAL ONE (12:01)
[2020-10-26] MEDS ORDERED: hydrALAZINE 20 MG/ML VIAL SLOW IVP PRN (12:05)
--- NOTE | 2020-10-26 12:38 | OP ---
DATE OF PROCEDURE: 10/26/2020 EDUCATIONAL ADVISER: Brooks Thomas PA-C INDICATION: Pain. DIAGNOSIS: Lumbar radiculopathy. PROCEDURES PERFORMED: Bilateral L5 nerve root decompression. ANESTHESIA: General. DESCRIPTION OF PROCEDURE: The patient was brought into the operating room and placed under general anesthesia. She was flipped from the supine to prone position on the operating room table. A linear incision was planned over the L5 segment. After prepping and draping and after an appropriate preoperative pause, the incision was created. The soft tissues were swept away from midline. A self-retaining retractor was placed for optimal exposure and the C-arm images were obtained to confirm the appropriate level. High-speed cutting drill bit as well as 2, 3, and 4 mm Kerrisons were used to perform bilateral L5 laminectomies in order to decompress the exiting L5 nerve root at the L4-L5 segment, but also to perform foraminotomies of the exiting L5 nerve roots at the foramen. After completing the decompression, the wound was irrigated. Hemostasis was maintained throughout. The wound was then closed in anatomic layers, and a pressure dressing was applied. There were no known procedural complications. Job ID: [id number]
[2020-10-26] MEDS ORDERED: Naloxone HCl 0.4 mg/ml Vial ONE (13:07)
[2020-10-26] MEDS ORDERED: Nitroglycerin 2% Ointment 1 INCH/1 GM Packet ONE (13:47)
[2020-10-26] MEDS ORDERED: Nitroglycerin 4.9 GM Bottle ONE (13:57)
--- NOTE | 2020-10-26 15:02 | RAD ---
Chest AP view INDICATION: History of chest pain COMPARISON: July 12, 2020 FINDINGS: Lungs: There is subsegmental volume loss within the left upper lobe and lingula. There is new hazy a irspace opacity in the right lower lobe. Cardiac silhouette: The cardiomediastinal silhouette appears within normal limits. Pulmonary vasculature: Normal Pleural spaces: No pleural effusion or pneumothorax is demonstrated. Upper abdomen: No abnormality seen. Osseous structures: No acute osseous abnormality. Additional findings: None. IMPRESSION: New hazy airspace opacity in the right lower lobe is suspicious for acute infiltrate. Two-view chest radiograph may be helpful for improved characterization. 2 separate foci of subsegmental volume loss in the left upper lobe and lingula.
[2020-10-26] MEDS ORDERED: Metoprolol Tartrate 5 MG/5 ML VIAL ONE (15:17)
[2020-10-26 15:39] LABS: CKMB 3.8 ng/mL (0-6.6); Troponin I 0.015 ng/mL (< 0.028)
[2020-10-26] MEDS ORDERED: Ondansetron PF 4 MG/2 ML Vial IM PRN (17:43)
[2020-10-26] MEDS ORDERED: Mag-Al 1200 mg/1200 mg/30 ML UDCUP PO PRN (17:45)
[2020-10-26] MEDS ORDERED: HYDROcodone/Acetaminophen 7.5/325 mg Tablet PO PRN ×2 (17:45)
[2020-10-26] MEDS ORDERED: Acetaminophen 650 MG Suppository PR PRN (17:45)
[2020-10-26] MEDS ORDERED: Acetaminophen 325 MG TAB PO PRN (17:45)
[2020-10-26] MEDS ORDERED: Milk Of Magnesia 30 ML UDCUP PO PRN (17:45)
[2020-10-26] MEDS ORDERED: Bisacodyl 10 MG SUPP PR PRN (17:45)
[2020-10-26] MEDS ORDERED: Cyclobenzaprine 10 MG TAB PO PRN (17:45)
[2020-10-26] MEDS ORDERED: Morphine 2 MG/ML VIAL SLOW IVP PRN (17:45)
[2020-10-26] MEDS ORDERED: diphenhydrAMINE 50 MG/ML VIAL IVP PRN (17:45)
[2020-10-26] MEDS ORDERED: diphenhydrAMINE 25 MG CAP PO PRN (17:45)
[2020-10-26] MEDS: Sodium Chloride 0.9% 1,000 ML IV SCH (20:21)
[2020-10-26] MEDS: CEFAZOLIN 2 GM in Premix Bag 1 BAG IVPB SCH (22:40)
[2020-10-26] MEDS: Morphine 4 MG/ML VIAL SLOW IVP PRN (22:46)
[2020-10-27] MEDS: Morphine 4 MG/ML VIAL SLOW IVP PRN ×3 (06:27→21:14)
[2020-10-27] MEDS: CEFAZOLIN 2 GM in Premix Bag 1 BAG IVPB SCH (06:33)
[2020-10-27] MEDS: Sodium Chloride 0.9% 1,000 ML IV SCH (07:49)
[2020-10-27] MEDS ORDERED: Aspirin 81 mg Enteric Coated Tablet PO SCH (13:00)
--- NOTE | 2020-10-27 13:01 | PRG ---
DATE OF SERVICE: 10/27/2020 Ms. Herzog is postoperative day #1 following lumbar laminectomy. She had chest pain postoperatively and while initial troponin is negative. She has a history of 7 stents, she tells me and is seen by Dr. Henry. She takes aspirin and Plavix normally, but these were stopped on October 19 for her surgery yesterday. I will resume a baby aspirin this morning. Her hemodynamics have been stable this morning at this point and she is off supplemental oxygen. We will arrange for an EKG and cardiac biomarker panel and given her cardiac history, ask our Cardiology colleagues to weigh in before discharging her. Again, I will initiate a baby aspirin this morning given her extensive history and she may need one more day in the hospital, appreciate our cardiology team's care. She is neurologically intact and somewhat effort dependent related weakness. She endorses bilateral leg pain, but I let her know that this should improve with time. Job ID: [id number]
[2020-10-27 13:12] LABS: CKMB 3.4 ng/mL (0-6.6)
[2020-10-27] MEDS ORDERED: Metoprolol Tartrate 25 MG TAB PO SCH (13:15)
--- NOTE | 2020-10-27 13:37 | CON ---
DATE OF CONSULTATION: 10/27/2020 INDICATION FOR CONSULTATION: A 65-year-old female, who underwent a decompression of the lumbar I think L4-L5 yesterday, lumbar decompression. After the procedure, she complained of chest pain. She does have a history of coronary artery disease. She underwent angioplasty and stent placement to the left circumflex and to the left anterior descending artery approximately six months ago with drug-eluting stents. Typically, she should have continued her Plavix and aspirin for 12 months prior to stopping these medications. However, she said that she stopped the medications prior to undergoing upper endoscopy. She also then held her medications prior to undergoing the spinal surgery. Apparently, her primary enterostomal therapy nurse, Dr. Henry was unaware that she was supposed to have surgery and I did not believe he had approved holding these medications. Yesterday after the procedure, she said she had some chest pressure apparently resolved after some pain medications, but otherwise today she is having no pain. Her EKG was unremarkable. Troponin I was drawn yesterday. There was no repeat request made. This will be done today. We will see whether or not the enzymes have increased or not, but otherwise she has remained stable and is comfortable at this time. PAST MEDICAL HISTORY: Significant for hypercholesterolemia. She has osteoarthritis. She has coronary artery disease. She has had angioplasty and stent placement. She has diabetes, osteoporosis, and cataracts. She has had cataract surgery. She has a history of a gastroesophageal reflux disease, as well as her hypertension, osteoarthritis, anxiety, and angioplasty and stent placement to two vessels and now lower back surgery. She has had a hysterectomy. She has also had a polypectomy. She has had an ulcer ablation. She has had a history of upper GI ulcerations in the past, but none for several years. REVIEW OF SYSTEMS: She had no HEENT complaints. States she has some decreased hearing in the left ear, but otherwise no significant abnormalities. She said she can hear the blood running to her ear at times and most likely this is due to the artery in proximity to the tympanic membrane. She complains of shortness of breath and dyspnea on exertion for the last year. She said there was no improvement after her stents were placed. She had some type of gastric or peptic ulcer in 2018. She has had no bleeding episodes since that time. She denied any other pulmonary complaints. No GI complaints. She had denied any nausea, vomiting, or diarrhea, which was chronic. She did have occasional diarrhea. She had no complaints. Musculoskeletal, she complains of numbness associated with her back problems and some difficulty in ambulation due to the weakness in her legs and numbness and tingling. MEDICATIONS: Prior to admission include; 1. Aspirin. 2. Plaquenil. 3. Atorvastatin. 4. Vitamin D. 5. She was taking Plavix, but stopped this about a week ago. 6. Pantoprazole. 7. Coreg. 8. Escitalopram. 9. Metformin. 10. Dicyclomine. 11. Isosorbide mononitrate. 12. Calcium. 13. Ranolazine. 14. Tresiba. ALLERGIES: SHE IS ALLERGIC TO REGLAN, PHENERGAN, COMPAZINE, LISINOPRIL, DOXYCYCLINE, TYLENOL NO. 3, GABAPENTIN, AND TRAMADOL. PHYSICAL EXAMINATION: GENERAL: Reveals a well-developed, well-nourished, very pleasant female. She is in no acute distress at all at this time. She sits up. She answers all questions appropriately. VITAL SIGNS: Showed temperature is 99, heart rate is 80, respiratory rate is 16, and blood pressure is 137/65. HEENT: Shows head to be normocephalic and atraumatic. Carotid pulses are present. I do not hear any bruits. There is no JVD. The thyroid did not appear to be enlarged. CHEST: Clear to auscultation. There were no rales, rhonchi, or wheezing. CARDIOVASCULAR: Reveals a regular rate and rhythm. Normal S1 and S2. I cannot hear an S3 nor an S4. No other any significant murmurs, heaves, thrills, bruits, or rubs noted. ABDOMEN: Shows obesity with positive bowel sounds. No organomegaly or masses are noted. No tenderness is noted. The lower back has a surgical dressing over the incision site. EXTREMITIES: Showed no clubbing, cyanosis, or edema. Pedal pulses are present. NEUROLOGIC: She did not get out of bed for full evaluation, but focally did not appear to have any gross focal motor deficits at this time. LABORATORY DATA: Her preop laboratory data, she did not have any labs yesterday except for the troponin, but on 10/23, potassium and sodium were normal. Her BUN was 26 with a creatinine of 0.83. Blood sugar was 246. This was repeated today and blood sugar was 141. Hemoglobin A1c was 9.5. Triglycerides were 158 and LDL cholesterol was 39. Troponin I as mentioned yesterday was 0.015, which is normal. Her EKG shows a normal sinus rhythm. There were no acute ST-segment changes noted. She did have decreased R-wave progression in V1 through V3. On the EKG performed yesterday could be lead placement and she also has some decreased R-wave progression in V1 through V3. On her preop evaluation, there was a slight R-wave in V3, which is not noted on the EKG yesterday. Otherwise, the EKG did not have any significant changes. IMPRESSION AND PLAN: 1. A 65-year-old female with chest pain with history of known coronary artery disease status post angioplasty and stent placement. I would advise as soon as possible she go back on her Plavix and aspirin once she is cleared from the neurologist to resume these antiplatelet medications. She should stay on these medications for a year due to her drug-eluting stents. 2. History of hypercholesterolemia. This is under good control at this time. Her triglycerides are slightly elevated, but otherwise her cholesterol level appeared to be under good control. 3. Diabetes. Obviously, this is under poor control with hemoglobin A1c of 9.8. This was back in September of 2020. I did not know whether she has improved her diet or not; however, blood sugar today was 141 and on 10/23 was 246. 4. History of hypertension, this is under reasonable control at this time. We will continue the present medications. At this time from a cardiac standpoint, there is no further workup that needs to be performed at this time. She needs follow up with her primary care physician in the future, but the only recommendation I would have at this time will be to resume the Plavix as soon as possible once there is no further risk of bleeding from her spinal surgery. Job ID: [id number]
[2020-10-27 16:39] LABS: Troponin I 0.703 ng/mL (< 0.028)
[2020-10-27] MEDS: Metoprolol Tartrate 25 MG TAB PO SCH (21:18)
[2020-10-28] MEDS: Sodium Chloride 0.9% 1,000 ML IV SCH ×2 (01:05→10:52)
[2020-10-28] MEDS: Morphine 4 MG/ML VIAL SLOW IVP PRN (05:48)
[2020-10-28] MEDS: Aspirin 81 mg Enteric Coated Tablet PO SCH (09:03)
[2020-10-28] MEDS: Metoprolol Tartrate 25 MG TAB PO SCH ×2 (09:03→21:15)
[2020-10-28] MEDS ORDERED: Diazepam 5 MG TAB PO PRN (11:12)
--- NOTE | 2020-10-28 11:13 | PRG ---
DATE OF SERVICE: 10/28/2020 Ms. Herzog is postoperative day #2 following lumbar L5 decompression. Her troponin has reached a level that seems quite consistent with myocardial infarct. We resumed her baby aspirin yesterday, I think it is still too early to resume her Plavix at this point. We appreciate Dr. Perez seeing the patient, while the patient is neurologically recovering as expected following a spinal surgery. She likely would benefit from further cardiac monitoring at this point. Job ID: [id number]
[2020-10-28] MEDS ORDERED: Diazepam 5 MG TAB PO SCH (11:15)
--- NOTE | 2020-10-28 11:51 | PRG ---
DATE OF SERVICE: Ms. Herzog is postoperative day #2 after undergoing right L4-L5 decompression. The patient endorses quite a bit of lower back pain and spasm exacerbated by movement. She has been receiving morphine, however she has yet to receive any muscle relaxants that were ordered prn. She demonstrates mild leg weakness that may be effort- related, but overall she demonstrates good range of motion and strength in both lower extremities. Her lumbar wound appears to be healing well without any signs of infection, and there is no drainage present. The patient is on the telemetry unit and is being evaluated by Cardiology. The patient's troponin has been elevated postoperatively. Our team restarted 81 mg aspirin yesterday, but we will continue to hold Plavix. Our team has elected to keep the patient for further monitoring and pain control. We will await cardiology clearance before discharge home. I have added on Valium for muscle spasms. The patient had several questions about her postoperative restrictions for when she arrives home. I discussed restrictions with regard to weight lifting, and bending and twisting at the waist. I also discussed postoperative wound care. She has no further questions at this time. Please call for any neurologic changes or other concerns. Job ID: [id number] MTDD
--- NOTE | 2020-10-28 15:25 | PDOC.CPN ---
- Subjective Date: 10/28/20 Time: 10:30 Interval history: Patient had no EKG changes overnight, remains ni sinus rhythm, heart rate well controlled in the 70's. She is c/o back pain today. She is upset today because her mother just fell and was admitted to a hospital in [place]. She denies any m ore episodes of chest pain. She denies chest pain, trouble breathing, shortness of breath, dizziness today. She is sitting up in bed. - Review of Systems General: denies: fever/chills, weight/appetite/sleep changes, night sweats, fatigue Respiratory: denies: cough, congestion, shortness of breath, exercise intolerance Cardiovascular: denies: chest pain, palpitation, edema, paroxysmal nocturnal dyspnea, orthopnea Musculoskeletal: reports: pain Neurological: reports: weakness - Objective Allergies/Adverse Reactions: Allergies Allergy/AdvReac Type Severity Reaction Status Date / Time acetaminophen Allergy Intermediate Anxiety Verified 10/25/20 10:52 [From Tylenol-Codeine #3] codeine Allergy Intermediate Anxiety Verified 10/25/20 10:52 [From Tylenol-Codeine #3] diphenhydramine Allergy Intermediate "makes me Verified 10/25/20 10:52 anxious" doxycycline Allergy Intermediate "real bad Verified 10/25/20 10:52 acid reflux" lisinopril Allergy Intermediate "severe Verified 10/25/20 10:52 cough" metoclopramide HCl Allergy Intermediate "makes me Verified 10/25/20 10:52 [From Reglan] crazy" prochlorperazine Allergy Intermediate "severe Verified 10/25/20 10:52 [From Compazine] anxiety" prochlorperazine edisylate Allergy Intermediate "severe Verified 10/25/20 10:52 [From Compazine] anxiety" prochlorperazine maleate Allergy Intermediate "severe Verified 10/25/20 10:52 [From Compazine] anxiety" promethazine HCl Allergy Intermediate "overly Verified 10/25/20 10:52 [From Phenergan] anxious" Visit Medications: Current Medications Acetaminophen (Acetaminophen 325 Mg Tab) 650 mg PO Q4H PRN PRN Reason: Headache/Fever or Pain(1-3) Last Admin: 10/27/20 21:20 Dose: 650 mg Documented by: Acetaminophen (Acetaminophen 650 Mg Suppository) 650 mg LA Q4H PRN PRN Reason: Headache/Fever or Pain(1-3) Hydrocodone Bitart/Acetaminophen (Hydrocodone/Acetaminophen 7.5/325 Mg Tablet) 1 tab PO Q4H PRN PRN Reason: Pain (1-3) Hydrocodone Bitart/Acetaminophen (Hydrocodone/Acetaminophen 7.5/325 Mg Tablet) 2 tab PO Q4H PRN PRN Reason: PAIN (4-6) Al Hydroxide/Mg Hydroxide (Mag-Al 1200 Mg/1200 Mg/30 Ml Udcup) 30 ml PO Q4H PRN PRN Reason: Heartburn or Indigestion Aspirin (Aspirin 81 Mg Enteric Coated Tablet) 81 mg PO DAILY [facility] Last Admin: 10/28/20 09:03 Dose: 81 mg Documented by: Bisacodyl (Bisacodyl 10 Mg Supp) 10 mg LA Q12H PRN PRN Reason: Constipation Cyclobenzaprine HCl (Cyclobenzaprine 10 Mg Tab) 10 mg PO Q8H PRN PRN Reason: Muscle Spasm Diazepam (Diazepam 5 Mg Tab) 5 mg PO Q8H PRN PRN Reason: Muscle spasms Diphenhydramine HCl (Diphenhydramine 25 Mg Cap) 25 mg PO Q6H PRN PRN Reason: Itching Diphenhydramine HCl (Diphenhydramine 50 Mg/Ml Vial) 25 mg IVP Q6H PRN PRN Reason: Itching Magnesium Hydroxide (Milk Of Magnesia 30 Ml Udcup) 30 ml PO Q12H PRN PRN Reason: Constipation Metoprolol Tartrate (Metoprolol Tartrate 25 Mg Tab) 25 mg PO BID [facility] Last Admin: 10/28/20 09:03 Dose: 25 mg Documented by: Morphine Sulfate (Morphine 2 Mg/Ml Vial) 2 mg SLOW IVP Q1H PRN PRN Reason: Moderate Breakthrough Pain Last Admin: 10/26/20 20:18 Dose: 2 mg Documented by: Morphine Sulfate (Morphine 4 Mg/Ml Vial) 4 mg SLOW IVP Q1H PRN PRN Reason: SEVERE BREAKTHROUGH PAIN Last Admin: 10/28/20 05:48 Dose: 4 mg Documented by: Ondansetron HCl (Ondansetron Pf 4 Mg/2 Ml Vial) 4 mg IM Q6H PRN PRN Reason: Nausea/Vomiting Sodium Chloride (Flush - Normal Saline 10 Ml Syringe) 10 ml IVF PRN PRN PRN Reason: Saline Flush Sodium Chloride (Flush - Normal Saline 10 Ml Syringe) 10 ml IVF Q12HR RYAN Vital Signs & Weight: Vital Signs Temp Pulse Resp BP Pulse Ox 10/28/20 08:00 96.7 F L 72 17 136/60 96 10/28/20 04:00 99.7 F H 75 14 144/68 H 94 L Weight 163 lb 12.8 oz - Quality Measures Condition: Coronary Artery Disease CV meds: Beta Oliva: Yes, ASA: Yes, Plavix/Effient/Brilinta: No (Held d/t recent surgery ) - Physical Exam General: alert & oriented x3, other (anxious and upset during examination) HEENT: mucus membranes moist Neck: supple neck, no JVD/HJR, no masses, no bruit Cardiac: regular rate and rhythm, no murmur, S1/S2 Lungs: clear to auscultation, normal breath sounds, no wheeze, rales, rhonchi Neuro: grossly intact, motor function intact, sensory function intact Abdomen: active bowel sounds, soft, non-tender Extremities: no edema, 2+ Posterior Tibial, 2+ Dorsalis Pedus Skin: clear Musculoskeletal: pain in joint (back pain d/t recent surgery, getting PRN pain medications that are helpful) - Labs Troponin/CKMB CK-MB (CK-2) 3.4 ng/mL (0-6.6) 10/27/20 12:09 Troponin I 0.703 ng/mL (< 0.028) H* 10/27/20 15:33 - EKG Interpretation EKG Method: Telemetry EKG: sinus rhythm - Assessment/Plan Assessment/Plan: 1. Chest pain with known Coronary artery disease s/p angioplasty and stent placement: She has had no more episodes of chest pain since surgery. She has had no EKG changes, she remains in sinus rhythm with no ectopy or ST changes, the patient stopped her Aspirin and Plavix d/t recent upper endoscopy and back surgery, she did not receive cardiac clearance from her primary jacket changer for this. Once cleared by Neurosurgery, I do recommend starting her Plavix as she needs to be on it d/t recent cardiac stent placement. Her troponin level was slightly elevated after surgery but has trended back down to 0.703, this could be d/t recent surgery. 2. History of hypercholesterolemia: under control at this time. Triglycerides slightly elevated at 158 but her other cholesterol levels are under good control. 3. History of hypertension: her blood pressure under good control at this time, we will continue current medications at this time. At this time, there is no further cardiac workup needed at this time. I recommend that she starts her Plavix once she is cleared by neurosurgery. Pt. seen and eval. by me. I agree with the a/P by the SPOOLER OPERATOR. Chest clear anteriorly. Cardiac status is stable. Resume plavix as soon as possible. Emily amezquita for the duration up to 1 year after coronary BERNICE stent implants. I will sign off. She should f/u with her primary jacket changer, Jonel Henry in 4-6 weeks. livia
[2020-10-29] MEDS: Metoprolol Tartrate 25 MG TAB PO SCH (08:30)
[2020-10-29] MEDS: Aspirin 81 mg Enteric Coated Tablet PO SCH (08:30)
[2020-10-29] MEDS ORDERED: Clopidogrel Bisulfate 75 MG TAB PO SCH (17:45)
[2020-10-29 18:00] VITALS: BP 142/64; TEMP 96.5
[2020-10-30] MEDS ORDERED: Clopidogrel Bisulfate 75 MG TAB PO SCH (09:00)
--- NOTE | 2020-10-30 09:52 | PQF ---
CLINICAL DOCUMENTATION CLARIFICATION FORM: Dear Boo Raza PA-C Date: 10/30/20 Please exercise your independent, professional judgment in responding to the clarification form. Clinical indicators are provided on the bottom of this form for your review. Please check appropriate box(es) to clarify if the following diagnosis has been ruled in our ruled out: MYOCARDIAL INFART [ ] Ruled in diagnosis [ ] Continue to treat [ ] Resolved [ ] Ruled out diagnosis [ ] Improving [ ] Cannot rule out diagnosis [ ] Other diagnosis [ X ] Unable to determine In addition, please specify: Present on Admission (POA): [ ] Yes [ X ] No [ ] Unable to determine For continuity of documentation, please document condition throughout progress notes and discharge summary. Thank You. To be completed by CDI/Coding staff for physician review: CLINICAL INDICATORS - SIGNS / SYMPTOMS / LABS / RESULTS AND LOCATION IN MR PN 10/28- SPIKE: "HER TROPONIN HAS REACHED A LEVEL THAT SEEMS QUITE CONSISTENT WITH MYOCARDIAL INFARCT." ZAMUDIO NOTE 10/27: "EKG UNREMARKABLE...I WOULD ADVISE SOON POSSIBLE SHE GO BACK ON HER PLAVIX AND ASPIRIN ONCE SHE IS CLEARED FROM THE NEUROLOGIST TO RESUME THESE ANTIPLATELET MEDICATION." PN- EULALIO ROBLES: "HER TROPONIN LEVEL WAS SLIGHTLY ELEVATED AFTER SURGERY BUT HAS TRENDED BACK DOWN TO 0.703, THIS COULD BE D/T RECENT SURGERY." TROPONIN 0.015 / 1.066 / 0.703 RISK FACTORS / RESULTS AND LOCATION IN MR H/O CAD (ZAMUDIO NOTE 10/27) H/O ANGIOPLASTY AND PLACEMENT OF DRUG ELUTING STENTS (ZAMUDIO NOTE 10/27) H/O DIABETES (ZAMUDIO NOTE10/27) NO CARDIAC CLEARANCE FROM PRIMARY WAREHOUSE FORKLIFT OPERATOR (PN 10/28- EULALIO ROBLES) TREATMENTS / RESULTS AND LOCATION IN MR CARDIOLOGY CONSULT 10/27 ECOTRIN (10/28-10/29) PLAVIX (10/29) LOPRESSOR (10/27-10/29) SERIAL TROPONINS CDS Signature: Kathy Meneses RN Phone #: [phone] Date: 10/30/20 This is a permanent part of the Medical Record [facility]
== END 2020-10-29 18:19 | disposition home or self-care (01) | DRG 515 ==
LOC: SDC 07:36 → 2NO 19:04 → OBSVTOIN 10-28 14:29
PROVIDERS: ADMIT Neurological Surgery; ATTEND Neurological Surgery
PROC: 01NB0ZZ Release Lumbar Nerve, Open Approach (ICD-10-PCS; principal; 2020-10-26)
DX: M48.061 Spinal stenosis, lumbar region without neurogenic claudication (principal); I21.9 Acute myocardial infarction, unspecified; M54.16 Radiculopathy, lumbar region; F41.9 Anxiety disorder, unspecified; E78.00 Pure hypercholesterolemia, unspecified; M19.90 Unspecified osteoarthritis, unspecified site; I25.10 Atherosclerotic heart disease of native coronary artery without angina pectoris; E11.9 Type 2 diabetes mellitus without complications; K21.9 Gastro-esophageal reflux disease without esophagitis; I10 Essential (primary) hypertension; M81.0 Age-related osteoporosis without current pathological fracture; Z88.6 Allergy status to analgesic agent; Z88.8 Allergy status to other drugs, medicaments and biological substances; Z79.82 Long term (current) use of aspirin; Z90.710 Acquired absence of both cervix and uterus; Z90.49 Acquired absence of other specified parts of digestive tract; Z95.5 Presence of coronary angioplasty implant and graft; Z79.84 Long term (current) use of oral hypoglycemic drugs; Z79.01 Long term (current) use of anticoagulants; Z79.899 Other long term (current) drug therapy; J30.2 Other seasonal allergic rhinitis; R07.9 Chest pain, unspecified; G89.18 Other acute postprocedural pain
CPT/HCPCS: 36415; 36416; 71045; 76000; 82553; 84484; 93005; 93010; 96374; 96375; 96376; G0378; J0171; J0360; J0690; J2270; J2310; J3010; S0020

== ENCOUNTER 2021-05-02 10:35 | Outpatient (CLI) | payer OTHER, MEDICARE | END 2021-05-02 10:36 | disposition home or self-care (01) | LOC: SCSRAD 10:35 | PROVIDERS: ATTEND Neurological Surgery | DX: M54.5 Low back pain (principal) | CPT/HCPCS: 72100 ==

== ENCOUNTER 2021-09-09 17:48 | Outpatient (CLI) | payer OTHER ==
[2021-09-10 08:18] LABS: SARS-CoV-2 PCR by NAA Not Detected (NotDetected)
== END 2021-09-09 17:49 | disposition home or self-care (01) ==
LOC: LABBT 17:48
PROVIDERS: ATTEND Ophthalmology Retina Specialist
DX: Z01.812 Encounter for preprocedural laboratory examination (principal); Z20.822 Contact with and (suspected) exposure to COVID-19
CPT/HCPCS: U0003; U0005

== ENCOUNTER 2021-09-12 05:56 | Day surgery (SDC) | payer OTHER, MEDICARE ==
[2021-09-11 15:53] VITALS: BMI 27.1
[2021-09-12] MEDS ORDERED: Cyclopentolate 1% Opth Drop 2 ML BOT ONE (06:06)
[2021-09-12] MEDS ORDERED: Phenylephrine 2.5% Ophth Soln 5 ML BOT ONE (06:07)
[2021-09-12] MEDS ORDERED: EPINEPHrine 0.3 MG in Ophthalmic Irrigation Solution 500 ML IRR SCH ×2 (06:15→06:30)
[2021-09-12] MEDS ORDERED: Midazolam HCl 2 mg/2 ml Vial ONE (06:25)
[2021-09-12] MEDS ORDERED: PROPOFOL 20 ML ONE (06:25)
[2021-09-12] MEDS ORDERED: Fentanyl 100 MCG/2 ML VIAL ONE (06:25)
[2021-09-12] MEDS ORDERED: Maxitrol 0.1% Opth Oint 3.5 GM TUBE ONE (07:24)
[2021-09-12] MEDS ORDERED: Lidocaine 1% PF 5 ML VIAL ONE (07:24)
[2021-09-12] MEDS ORDERED: Bupivacaine PF 0.75% SDV 10 ML ONE (07:24)
[2021-09-12] MEDS ORDERED: CEFAZOLIN 1 GM VIAL ONE (07:24)
[2021-09-12] MEDS ORDERED: Lidocaine 4% PF 5 ML AMP ONE (07:24)
[2021-09-12] MEDS ORDERED: Triamcinolone 40 MG/ML VIAL ONE (07:24)
== END 2021-09-12 08:29 | disposition home or self-care (01) ==
LOC: SDC 05:56
PROVIDERS: ATTEND Ophthalmology Retina Specialist
PROC: 08T53ZZ Resection of Left Vitreous, Percutaneous Approach (ICD-10-PCS; principal; 2021-09-12)
PROC: 08NF3ZZ Release Left Retina, Percutaneous Approach (ICD-10-PCS; principal; 2021-09-12)
DX: H43.12 Vitreous hemorrhage, left eye (principal); Z79.02 Long term (current) use of antithrombotics/antiplatelets; Z79.82 Long term (current) use of aspirin; Z79.899 Other long term (current) drug therapy; Z88.1 Allergy status to other antibiotic agents; Z88.5 Allergy status to narcotic agent; Z88.6 Allergy status to analgesic agent; Z88.8 Allergy status to other drugs, medicaments and biological substances; Z95.5 Presence of coronary angioplasty implant and graft; Z98.41 Cataract extraction status, right eye; Z98.42 Cataract extraction status, left eye; Z96.1 Presence of intraocular lens
CPT/HCPCS: J0171; J0690; J2250; J2704; J3010; J3301; J3490; U0003; U0005

== ENCOUNTER 2024-04-28 06:29 | Day surgery (SDC) | payer BC, MEDICARE ==
[2024-04-27 14:30] VITALS: BMI 28.3
[~2024-04-28 06:29] MED LIST changes: +EPINEPHrine 0.3 MG in Ophthalmic Irrigation Solution 500 ML IRR SCH; -Iopamidol-370 76% 500 ML 1 ML ONE
[2024-04-28] MEDS ORDERED: PHENYLephrine 2.5% Ophth Soln 15 ml Bottle ONE (06:44)
[2024-04-28] MEDS ORDERED: Cyclopentolate 0.5% Opth Drops 15 ML BOT ONE (06:44)
[2024-04-28] MEDS ORDERED: Dextrose 50% Abboject 50 ML SYRINGE ONE (07:14)
[2024-04-28] MEDS ORDERED: fentaNYL 50 mcg/mL 1 mL Vial ONE (07:56)
[2024-04-28] MEDS ORDERED: PROPOFOL 20 ML ONE (07:56)
[2024-04-28] MEDS ORDERED: Midazolam HCl 2 mg/2 ml Vial ONE (07:56)
[2024-04-28] MEDS ORDERED: Bupivacaine 0.75% 10 ML VIAL ONE (08:27)
[2024-04-28] MEDS ORDERED: Lidocaine 1% PF 5 ML VIAL ONE (08:27)
[2024-04-28] MEDS ORDERED: CEFAZOLIN 1 GM VIAL ONE (08:27)
[2024-04-28] MEDS ORDERED: Triamcinolone 40 MG/ML VIAL ONE (08:27)
[2024-04-28] MEDS ORDERED: Lidocaine 4% PF 5 ML AMP ONE (08:27)
== END 2024-04-28 09:33 | disposition home or self-care (01) ==
LOC: SDC 06:29
PROVIDERS: ATTEND Ophthalmology Retina Specialist
PROC: 08QE3ZZ Repair Right Retina, Percutaneous Approach (ICD-10-PCS; principal; 2024-04-28)
PROC: 08T43ZZ Resection of Right Vitreous, Percutaneous Approach (ICD-10-PCS; principal; 2024-04-28)
DX: H43.11 Vitreous hemorrhage, right eye (principal); Z88.1 Allergy status to other antibiotic agents; Z88.5 Allergy status to narcotic agent; Z88.8 Allergy status to other drugs, medicaments and biological substances
CPT/HCPCS: 36416; J0171; J0690; J2250; J2704; J3010; J3301; J3490; J7999

== ENCOUNTER 2024-10-20 06:07 | Day surgery (SDC) | payer MEDICARE ==
[2024-10-19 10:52] VITALS: BMI 25.9
[2024-10-20] MEDS ORDERED: PROPOFOL 40 ML ONE (07:23)
[2024-10-20] MEDS ORDERED: Lidocaine 2% PF 5 ML VIAL ONE (07:23)
[2024-10-20] MEDS ORDERED: PHENYLEPHRINE-NS 100 MCG/ML 10 ML SYRINGE ONE (08:53)
[2024-10-20] MEDS ORDERED: ePHEDrine Sulfate 50 MG/10 ML VIAL ONE (08:53)
== END 2024-10-20 10:08 | disposition home or self-care (01) ==
LOC: SDC 06:07
PROVIDERS: ATTEND Internal Medicine
PROC: 0DJD8ZZ Inspection of Lower Intestinal Tract, Via Natural or Artificial Opening Endoscopic (ICD-10-PCS; principal; 2024-10-20)
DX: R10.31 Right lower quadrant pain (principal); K59.09 Other constipation; Z90.411 Acquired partial absence of pancreas; K64.8 Other hemorrhoids; E66.9 Obesity, unspecified; I25.10 Atherosclerotic heart disease of native coronary artery without angina pectoris; Z95.5 Presence of coronary angioplasty implant and graft; Z79.4 Long term (current) use of insulin; F32.A Depression, unspecified; I10 Essential (primary) hypertension; E78.00 Pure hypercholesterolemia, unspecified; Z90.710 Acquired absence of both cervix and uterus; Z79.899 Other long term (current) drug therapy; Z88.8 Allergy status to other drugs, medicaments and biological substances; Z88.1 Allergy status to other antibiotic agents; Z88.5 Allergy status to narcotic agent
CPT/HCPCS: 45378; 82962; J2704; 36416

== ENCOUNTER 2024-12-01 09:00 | Outpatient (CLI) | payer MEDICARE ==
[2024-12-01 10:07] LABS: #Basophils 0.07 10x3/uL (0.0-0.2); %Basophils 0.9 % (0.0-1.0); %Eosinophils 3.3 % (0.0-10.0); %Lymphocytes 33.3 % (21.0-51.0); Hematocrit 35.7 % (36.0-47.0); Hemoglobin 11.3 g/dL (12.0-16.0); Mean Corpuscular HGB CONC 31.7 g/dL (32.0-36.0); Mean Corpuscular Hemoglobin 25.6 pg (27.0-31.0); Mean Corpuscular Volume 80.8 fL (78.0-98.0); Mean Platelet Volume 10.7 fL (7.4-10.4); Platelet Count 397 10x3/uL (130-400); RBC Distribution Width 16.8 % (11.5-14.5); Red Blood Cell (RBC) Count 4.42 mill/uL (4.20-5.40)
[2024-12-01 10:26] LABS: ALT (SGPT) 29 U/L (8-55); AST (SGOT) 30 U/L (5-34); Albumin 3.4 g/dL (3.4-4.8); Alkaline Phosphatase 101 U/L (40-110); Anion Gap 9 mmol/L (10-20); BUN (Urea Nitrogen) 7 mg/dL (9.8-20.1); Bilirubin, Direct 0.1 mg/dL (0.1-0.3); Bilirubin, Total 0.2 mg/dL (0.2-1.2); Calc. Creatinine Clearance 0 mL/min (70-130); Calcium 9.3 mg/dL (7.8-10.44); Carbon Dioxide 27 mmol/L (23-31); Chloride 109 mmol/L (98-107); Estimated GFR 98; Glucose 63 mg/dL (80-115); Potassium 4.4 mmol/L (3.5-5.1); Sodium 141 mmol/L (136-145)
== END 2024-12-01 09:01 | disposition home or self-care (01) ==
LOC: LABBT 09:00
PROVIDERS: ATTEND Internal Medicine Cardiovascular Disease
DX: Z01.812 Encounter for preprocedural laboratory examination (principal); K40.90 Unilateral inguinal hernia, without obstruction or gangrene, not specified as recurrent
CPT/HCPCS: 80048; 80076; 85025

== ENCOUNTER 2024-12-06 05:50 | Day surgery (SDC) | payer MEDICARE ==
[2024-12-01 09:29] VITALS: BMI 27.3
[2024-12-06] MEDS ORDERED: EPINEPHrine 1 MG/ML VIAL ONE (06:39)
[2024-12-06] MEDS ORDERED: Bupivacaine 0.25% HCL 30 ML VIAL ONE (06:39)
[2024-12-06] MEDS ORDERED: fentaNYL PF 100 MCG/2 ML SYRINGE ONE (06:54)
[2024-12-06] MEDS ORDERED: PROPOFOL 20 ML ONE (06:55)
[2024-12-06] MEDS ORDERED: CEFAZOLIN 2 GM VIAL ONE (07:25)
[2024-12-06] MEDS ORDERED: Dexamethasone 4 mg/ml Vial ONE (07:50)
[2024-12-06] MEDS ORDERED: Rocuronium Bromide 10 MG/ML (10ML VIAL) ONE (07:57)
[2024-12-06] MEDS ORDERED: Lidocaine 1% PF 5 ML VIAL ONE ×2 (07:57)
[2024-12-06] MEDS ORDERED: Bupivacaine PF 0.5% 30 ML VIAL ONE (07:58)
[2024-12-06] MEDS ORDERED: Dexmedetomidine 200 MCG/2 ML VIAL ONE (07:59)
[2024-12-06] MEDS ORDERED: ePHEDrine Sulfate 50 MG/10 ML VIAL ONE (08:00)
[2024-12-06] MEDS ORDERED: Ondansetron PF 4 MG/2 ML Vial ONE (08:17)
[2024-12-06] MEDS ORDERED: SUGAMMADEX SODIUM 200 MG/2 ML VIAL ONE (08:17)
[2024-12-06] MEDS ORDERED: fentaNYL 50 mcg/mL 1 mL Vial ONE ×4 (08:52→09:46)
[2024-12-06] MEDS ORDERED: HYDROcodone/Acetaminophen 5/325 mg Tablet ONE (10:47)
== END 2024-12-06 11:15 | disposition home or self-care (01) ==
LOC: SDC 05:50
PROVIDERS: ATTEND Surgery
PROC: 0YU50JZ Supplement Right Inguinal Region with Synthetic Substitute, Open Approach (ICD-10-PCS; principal; 2024-12-06)
DX: K40.90 Unilateral inguinal hernia, without obstruction or gangrene, not specified as recurrent (principal); I10 Essential (primary) hypertension; I25.10 Atherosclerotic heart disease of native coronary artery without angina pectoris; E11.9 Type 2 diabetes mellitus without complications; Z78.0 Asymptomatic menopausal state; Z90.710 Acquired absence of both cervix and uterus; Z95.5 Presence of coronary angioplasty implant and graft; Z98.41 Cataract extraction status, right eye; Z98.42 Cataract extraction status, left eye; Z88.8 Allergy status to other drugs, medicaments and biological substances; Z88.5 Allergy status to narcotic agent; Z79.4 Long term (current) use of insulin; Z79.899 Other long term (current) drug therapy
CPT/HCPCS: 49505; 71045; 82962; A4306; C1713; J0171; J0665 ×2; J1100; J2405; J2704; J3010; 36416

== ENCOUNTER 2025-11-03 10:02 | Outpatient (CLI) | payer MEDICARE, OTHER ==
[2025-11-03 11:10] LABS: #Basophils 0.09 10x3/uL (0.0-0.2); #Eosinophils 0.12 10x3/uL (0.0-0.7); #Monocytes 0.45 10x3/uL (0.11-0.59); #Neutrophils 4.22 10x3/uL (1.40-6.50); %Basophils 1.3 % (0.0-1.0); %Eosinophils 1.7 % (0.0-10.0); %Lymphocytes 28.9 % (21.0-51.0); %Monocytes 6.5 % (0.0-10.0); %Neutrophils 61.0 % (42.0-75.0); Hematocrit 38.0 % (36.0-47.0); Hemoglobin 12.3 g/dL (12.0-16.0); Mean Corpuscular Hemoglobin 25.8 pg (27.0-31.0); Mean Corpuscular Volume 79.8 fL (78.0-98.0); Platelet Count 414 10x3/uL (130-400); Red Blood Cell (RBC) Count 4.76 mill/uL (4.20-5.40); White Blood Cell (WBC) Count 6.92 10x3/uL (4.8-10.8)
[2025-11-03 11:20] LABS: INR-International Normal Ratio 1.0; Prothrombin Time 13.3 sec (12.0-14.7)
[2025-11-03 11:21] LABS: PTT 29.1 sec (22.9-36.1)
[2025-11-03 11:29] LABS: Anion Gap 15 mmol/L (10-20); BUN (Urea Nitrogen) 24 mg/dL (9.8-20.1); Calc. Creatinine Clearance 0 mL/min (70-130); Calcium 9.6 mg/dL (7.8-10.44); Carbon Dioxide 23 mmol/L (23-31); Chloride 98 mmol/L (98-107); Glucose 526 mg/dL (80-115); Potassium 5.3 mmol/L (3.5-5.1); Sodium 131 mmol/L (136-145)
== END 2025-11-03 10:03 | disposition home or self-care (01) ==
LOC: LABBT 10:02
PROVIDERS: ATTEND Orthopaedic Surgery
DX: Z01.818 Encounter for other preprocedural examination (principal); G56.01 Carpal tunnel syndrome, right upper limb; M65.331 Trigger finger, right middle finger; M65.341 Trigger finger, right ring finger
CPT/HCPCS: 71046; 80048; 85025; 85610; 85730; 93005; 93010